=== PATIENT | male | born 1960 | race Caucasian/White ===

== ENCOUNTER 2020-03-01 11:15 | Emergency (ER) | payer SELFPAY ==
[2020-03-01] MEDS ORDERED: Tetan/Diph/Pertus SYR(Tdap)* 0.5 ML SYR(BOOSTRIX) use SYR contains LATEX IM ONE (11:30)
[2020-03-01 11:37] VITALS: BP 188/112
[2020-03-01] MEDS ORDERED: Lidocaine 1% MPF ** 5 ML VIAL INJ ONE (11:42)
--- NOTE | 2020-03-01 11:50 | UC ---
Laceration HPI - HPI Summary HPI Summary: WHILE AT WORK TODAY WAS STRUCK ON THE RIGHT SIDE OF THE NECK BY A PIECE OF METAL MACHINERY. NO HEAD INJURY OR LOC. SUSTAINED A LACERATION. DENIES ANY JAW PAIN. NOT UP-TO-DATE TETANUS. - History Of Current Complaint Chief Complaint: UCLaceration Stated Complaint: cut on neck Time Seen by Provider: 03/01/20 11:30 Hx Obtained From: Patient Laceration Location: Neck - RIGHT SIDE Onset/Duration: Sudden Onset, Lasting Hours, Still Present Severity: Moderate Pain Intensity: 4 Pain Scale Used: 0-10 Numeric Aggravating Factors: Nothing - Allergies/Home Medications Allergies/Adverse Reactions: Allergies Allergy/AdvReac Type Severity Reaction Status Date / Time No Known Allergies Allergy Verified 03/01/20 11:28 Home Medications: Home Medications Cephalexin CAP* [Keflex 500 CAP*] 500 mg PO BID #10 cap 03/01/20 [Rx] Ibuprofen TAB* [Motrin TAB* 400 MG] 400 mg PO BID 03/01/20 [History Confirmed ] PMH/Surg Hx/FS Hx/Imm Hx Previously Healthy: Yes - Surgical History Surgical History: None - Family History Known Family History: Positive: Hypertension - Social History Alcohol Use: Daily Substance Use Type: None Smoking Status (MU): Heavy Every Day Tobacco Smoker Amount Used/How Often: 1ppd - Immunization History Most Recent Tetanus Shot: >5 yrs Review of Systems All Other Systems Reviewed And Are Negative: Yes Constitutional: Positive: Negative Skin: Positive: Other - LACERATIONS RIGHT SIDE OF NECK Respiratory: Positive: Negative Cardiovascular: Positive: Negative Gastrointestinal: Positive: Negative Physical Exam Triage Information Reviewed: Yes Appearance: Well-Appearing, No Pain Distress, Well-Nourished Vital Signs: Initial Vital Signs Temp 98.5 F 03/01/20 11:24 Pulse 77 03/01/20 11:24 Resp 16 03/01/20 11:24 BP 188/112 03/01/20 11:24 Pulse Ox 97 03/01/20 11:24 Vital Signs Reviewed: Yes Eyes: Positive: Conjunctiva Clear ENT: Positive: Hearing grossly normal Neck: Positive: Supple Respiratory: Positive: No respiratory distress, No accessory muscle use Cardiovascular: Positive: Pulses Normal Musculoskeletal: Positive: No Edema, Other: - NO BONY TENDERNESS RIGHT JAW Neurological: Positive: Alert Psychological: Positive: Age Appropriate Behavior Skin: Positive: Other - 3CM LACERATION RIGHT JAWLINE, 1CM SPFL LACERATION RIGHT NECK, 0.8CM SPFL LACERATION RIGHT NECK. Negative: Rashes Laceration Repair - Laceration Repair 1 Description: Linear Laceration Size After Repair: Length (cm) - 3CM, Width (mm) - 0MM, Depth (mm) - 2MM Modified For Repair: No Type Injection: Local Anesthesia Used: 1.0% Lido Irrigation With Pressure Irrigation Device: Yes Closure Material: Sutures - 8 SIMPLE INTERRUPTED Closure Method: Single Layer Suture Of: Skin Suture Type: Prolene - 5-0 2 Description: Irregular Laceration Size After Repair: Length (cm) - 1CM, Width (mm) - 0MM, Depth (mm) - 1MM Modified For Repair: No Irrigation With Pressure Irrigation Device: Yes Closure Material: SteriStrips 3 Description: Irregular Laceration Size After Repair: Length (cm) - 0.8CM, Width (mm) - 0MM, Depth (mm) - 2MM Modified For Repair: No Irrigation With Pressure Irrigation Device: Yes Closure Material: SteriStrips Laceration Course/Dx - Course/Dx Course Of Treatment: PATIENT IS CONFIDENT THERE IS NO RETAINED METAL FOREIGN BODY WITHIN THE WOUND. HAS NO PAIN WITH PALPATION OF MANDIBLE. PATIENT DECLINES X-RAY TODAY. TIME OUT COMPLETE. LACERATIONS REPAIRED WITHOUT COMPLICATION. KEFLEX FOR INFECTION PROPHYLAXIS. TDAP BOOSTED TODAY. PT WITH ELEVATED BP ON ARRIVAL. DENIES CP, SOB, NAUSEA. STATES HE [facility] BUT NOT [facility]. HE HAS A BP MONITOR AT HOME AND WILL CHECK WHEN HE GETS HOME AND F/U. - Diagnosis Provider Diagnosis: Laceration of neck Discharge ED - Sign-Out/Discharge Documenting (check all that apply): Patient Departure All imaging exams completed and their final reports reviewed: No Studies - Discharge Plan Condition: Stable Disposition: HOME Prescriptions: Cephalexin CAP* [Keflex 500 CAP*] 500 mg PO BID #10 cap Patient Education Materials: Laceration (ED) Referrals: Ike Cook MD [Primary Care Provider] - If Needed Additional Instructions: KEEP DRESSINGS IN PLACE AND DRY FOR THE FIRST 24 HRS. THEN YOU MAY REMOVE THE DRESSING AND GENTLY CLEANSE WITH SOAP AND WATER. PAT DRY AND RE-BANDAGE. APPLY THIN LAYER ANTIBIOTIC OINTMENT UNDER BANDAGE FOR FIRST 3-4 DAYS ONLY. I RECOMMEND AVOIDING NEOMYCIN CONTAINING PRODUCTS THEY CAN BE HIGHLY ALLERGENIC. CHANGE BANDAGE DAILY AND NEEDED IF IT BECOMES SOILED OR WET. SEEK FOLLOW-UP IF YOU DEVELOP SPREADING REDNESS OF THE SKIN, PURULENT DRAINAGE, FEVER, INCREASED PAIN OR ANY OTHER CONCERNING SYMPTOMS. RETURN TO HAVE YOUR EIGHT (8) SUTURES REMOVED IN 10 DAYS THE STERISTRIPS WILL FALL OFF ON THEIR OWN IN THE NEXT 1-2 WEEKS. DO NOT PUT ANY OINTMENT ON TOP OF THEM. DO NOT SUBMERGE IN WATER FOR PROLONGED PERIOD OF TIME. OKAY FOR BRIEF SHOWER AFTER 24 HOURS AND THEN BE SURE TO ALLOW TO DRY COMPLETELY. TAKE THE ANTIBIOTICS PRESCRIBED FOR INFECTION PROPHYLAXIS. TETANUS IMMUNIZATION GIVEN (TDAP): You have been given an immunization against tetanus. Please record this in your records. In general, a booster is needed only once every 10 years. The tetanus shot protects against tetanus or "lockjaw," which is a complication of certain wound infections (the tetanus shot cannot protect against the actual infection). The immunization site may become warm and red due to local reaction. If this occurs, apply warm compresses and take aspirin or ibuprofen to reduce inflammation and discomfort. Return for evaluation if the reaction becomes severe. - Billing Disposition and Condition Condition: STABLE Disposition: Home
== END 2020-03-01 12:45 | disposition home or self-care (01) ==
LOC: UCEAST 11:15
DX: S11.91XA Laceration without foreign body of unspecified part of neck, initial encounter (principal); W31.9XXA Contact with unspecified machinery, initial encounter; Y92.9 Unspecified place or not applicable; Y99.0 Civilian activity done for income or pay; Z23 Encounter for immunization; I10 Essential (primary) hypertension; F17.200 Nicotine dependence, unspecified, uncomplicated
CPT/HCPCS: 12002; 90471; 90715; 99212; G0463